=== PATIENT | male | born 1955 | race African-American/Black ===

== ENCOUNTER 2017-03-01 20:06 | Emergency (ER) | payer MEDICAID ==
[~2017-03-01] VITALS: Ht 180.3 cm; Wt 124.7 kg
[~2017-03-01 20:06] MED LIST: AUGMENTIN 875875 MG PO; BLOOD PRESSURE MED; FLEXERIL PO; FLONASE 0.05%50 MCG NASAL; GLUCOPHAGE XR500 MG PO; HYDROCHLOROTH12.5 M1 PO; LASIX 40 MG TAB40 M2; MOBIC15 MG PO; MOBIC7.5 MG PO; NORVASC2.5 MG PO; PERCOCET 5-3251 EACH PO; PERCOCET 7.5-31 EACH PO; PERCOCET PO; PREDNISONE 1 MG1 M1 PO; PREDNISONE50 MG PO; PROAIR HFA8.5 GM INH; PROMETHAZINE D480 ML PO; VENTOLIN HFA 1818 GM INH; XANAX 1 MG TABLE1 MG PO; ZESTRIL40 MG; ZPAK PO
[2017-03-01 21:24] LABS: ABSOLUTE BASOPHILS 0.1 thou/uL (0.0-0.2); ABSOLUTE EOSINOPHILS 0.1 thou/uL (0.0-0.7); ABSOLUTE LYMPHOCYTES 1.5 thou/uL (0.8-5.3); ABSOLUTE MONOCYTES 0.6 thou/uL (0.0-1.2); ABSOLUTE NEUTROPHILS 5.4 thou/uL (1.6-8.1); BASOPHILS 1.1 %; EOSINOPHILS 0.7 %; HEMATOCRIT 35.7 % (42.0-52.0); HEMOGLOBIN 12.3 gm/dL (14.0-18.0); LYMPHOCYTES 19.9 %; MCH 28.2 pg (26.0-34.0); MCHC 34.4 g/dL (28.0-37.0); MCV 81.9 fL (80.0-100.0); MONOCYTES 8.3 %; MPV 8.9 fl. (7.2-11.1); NUCLEATED RBCS 0 /100WBC; PLATELET COUNT* 271 thou/uL (150-400); RBC 4.36 mil/uL (4.50-6.00); RDW-CV 14.8 % (10.5-14.5); WBC 7.7 thou/uL (4.0-11.0)
[2017-03-01 21:33] LABS: ANION GAP 7 mmol/L (7-16); BUN 24 mg/dL (7-18); CALCIUM 9.1 mg/dL (8.5-10.1); CHLORIDE 104 mmol/L (98-107); CO2 27 mmol/L (21-32); CREATININE 1.5 mg/dL (0.6-1.3); GLUCOSE 121 mg/dL (70-99); POTASSIUM 4.9 mmol/L (3.5-5.1); SODIUM 138 mmol/L (136-145)
[2017-03-01 21:36] LABS: URINE BILIRUBIN NEGATIVE (Negative); URINE BLOOD NEGATIVE (Negative); URINE CLARITY CLEAR; URINE COLOR YELLOW; URINE GLUCOSE-RANDOM NEGATIVE (Negative); URINE KETONES NEGATIVE (Negative); URINE LEUKOCYTES-REFLEX NEGATIVE (Negative); URINE NITRITE-REFLEX NEGATIVE (Negative); URINE PROTEIN NEGATIVE (Negative); URINE UROBILINOGEN 0.2 E.U./dl (0.2-1.0)
[2017-03-01 21:46] LABS: ALBUMIN 3.6 g/dL (3.4-5.0); ALKALINE PHOSPHATASE 125 U/L (46-116); LIPASE 226 U/L (73-393); SGOT 56 U/L (15-37); SGPT 41 U/L (30-65); TOTAL BILIRUBIN 0.4 mg/dL (<0.1-1.0); TOTAL PROTEIN 7.3 g/dL (6.4-8.2); TROPONIN-I LEVEL <0.06 ng/mL (<0.06)
[2017-03-01 21:58] LABS: INFLUENZA A ANTIGEN None Detected (None Detect); INFLUENZA B ANTIGEN None Detected (None Detect)
[2017-03-01] MEDS ORDERED: LEVAQUIN 500 M500 MG PO (22:47)
[2017-03-01] MEDS ORDERED: PERCOCET 5-3251 EACH PO (22:47)
[2017-03-01] MEDS ORDERED: PROAIR HFA8.5 GM INH (22:47)
[2017-03-01 23:23] VITALS: BP 132/80
--- NOTE | 2017-03-02 10:31 | EKG ---
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: : 1955 Requested By: Zayra Ruelas Order Number: [id number] MD: Virgilio Gonzalez Measurements Intervals [place] Rate: 100 P: 52 CO: 158 QRS: 29 QRSD: 89 T: 47 QT: 328 QTc: 423 Interpretive Statements Sinus tachycardia early repolarization Probable left atrial enlargement Compared to ECG 08/08/2015 03:19:17 Sinus rhythm no longer present Electronically Signed On 03-02-2017 10:31:18 [employer] by Virgilio Gonzalez [email or web address] <ELECTRONICALLY SIGNED> By: Virgilio Gonzalez MD, [facility] 03/02/17 1031 50 50 Virgilio Gonzalez MD, FACC /EPI
== END 2017-03-01 23:30 | disposition home or self-care (01) ==
LOC: M.ERS 20:06
PROVIDERS: Nurse Practitioner Family
DX: J18.9 Pneumonia, unspecified organism (principal); M10.9 Gout, unspecified; R11.2 Nausea with vomiting, unspecified; R19.7 Diarrhea, unspecified; E11.9 Type 2 diabetes mellitus without complications; I10 Essential (primary) hypertension; K21.9 Gastro-esophageal reflux disease without esophagitis; Z87.891 Personal history of nicotine dependence

== ENCOUNTER 2017-10-29 17:48 | Emergency (ER) | payer MEDICAID ==
[~2017-10-29] VITALS: Ht 180.3 cm; Wt 128.8 kg
[~2017-10-29 17:48] MED LIST changes: +LEVAQUIN 500 M500 MG PO
[2017-10-29] MEDS ORDERED: ULTRAM 50MG TAB50 MG PO (18:59)
[2017-10-29] MEDS ORDERED: SINGULAIR 10 MG10 MG PO (19:14)
[2017-10-29] MEDS ORDERED: NORCO 5-325 TA1 EAC1 PO (19:17)
[2017-10-29 19:27] VITALS: BP 142/82
== END 2017-10-29 19:29 | disposition home or self-care (01) ==
LOC: M.ERS 17:48
DX: M25.511 Pain in right shoulder (principal); E11.9 Type 2 diabetes mellitus without complications; I10 Essential (primary) hypertension; K21.9 Gastro-esophageal reflux disease without esophagitis; Z85.118 Personal history of other malignant neoplasm of bronchus and lung; Z87.891 Personal history of nicotine dependence

== ENCOUNTER 2019-02-09 12:38 | Emergency (ER) | payer MEDICAID ==
[~2019-02-09] VITALS: Ht 180.3 cm; Wt 138.8 kg
[~2019-02-09 12:38] MED LIST changes: +NORCO 5-325 TA1 EAC1 PO; +SINGULAIR 10 MG10 MG PO; +ULTRAM 50MG TAB50 MG PO
[2019-02-09] MEDS ORDERED: LANTUS SUBQ (12:48)
[2019-02-09 13:31] LABS: URINE BILIRUBIN NEGATIVE (Negative); URINE BLOOD NEGATIVE (Negative); URINE CLARITY CLEAR; URINE COLOR YELLOW; URINE GLUCOSE-RANDOM NEGATIVE (Negative); URINE KETONES NEGATIVE (Negative); URINE LEUKOCYTES-REFLEX NEGATIVE (Negative); URINE NITRITE-REFLEX NEGATIVE (Negative); URINE PROTEIN NEGATIVE (Negative); URINE SPECIFIC GRAVITY 1.015 (1.005-1.030); URINE UROBILINOGEN 0.2 E.U./dl (0.2-1.0)
[2019-02-09 13:47] LABS: ABSOLUTE BASOPHILS 0.1 thou/uL (0.0-0.2); ABSOLUTE LYMPHOCYTES 1.5 thou/uL (0.8-5.3); ABSOLUTE MONOCYTES 0.4 thou/uL (0.0-1.2); ABSOLUTE NEUTROPHILS 5.6 thou/uL (1.6-8.1); EOSINOPHILS 0.4 %; HEMATOCRIT 40.7 % (42.0-52.0); LYMPHOCYTES 19.5 %; MCH 28.2 pg (26.0-34.0); MCHC 34.4 g/dL (28.0-37.0); MCV 81.9 fL (80.0-100.0); MONOCYTES 5.7 %; MPV 8.8 fl. (7.2-11.1); NUCLEATED RBCS 0 /100WBC; PLATELET COUNT* 288 thou/uL (150-400); POLYS 73.4 %; RBC 4.97 mil/uL (4.50-6.00); RDW-CV 13.7 % (10.5-14.5); WBC 7.6 thou/uL (4.0-11.0)
[2019-02-09 14:02] LABS: CALCIUM 9.3 mg/dL (8.5-10.1); CREATININE 1.4 mg/dL (0.6-1.3); POTASSIUM 3.9 mmol/L (3.5-5.1)
[2019-02-09 14:06] LABS: ALBUMIN 4.1 g/dL (3.4-5.0); TOTAL BILIRUBIN 0.4 mg/dL (<0.1-1.0); TOTAL PROTEIN 8.3 g/dL (6.4-8.2)
[2019-02-09] MEDS ORDERED: ONDANSETRON ODT4 MG PO (14:17)
[2019-02-09] MEDS ORDERED: XANAX 0.5 MG0.5 MG PO (14:17)
[2019-02-09 14:32] VITALS: BP 159/83
== END 2019-02-09 14:33 | disposition home or self-care (01) ==
LOC: M.ERS 12:38
PROVIDERS: Physician Assistant
DX: R11.2 Nausea with vomiting, unspecified (principal); F41.9 Anxiety disorder, unspecified; E11.9 Type 2 diabetes mellitus without complications; I10 Essential (primary) hypertension; K21.9 Gastro-esophageal reflux disease without esophagitis; Z85.118 Personal history of other malignant neoplasm of bronchus and lung; Z87.891 Personal history of nicotine dependence; Z79.4 Long term (current) use of insulin

== ENCOUNTER 2019-07-06 22:36 | Emergency (ER) | payer MEDICAID ==
[~2019-07-06] VITALS: Ht 180.3 cm; Wt 138.3 kg
[~2019-07-06 22:36] MED LIST changes: +LANTUS SUBQ; +ONDANSETRON ODT4 MG PO; +XANAX 0.5 MG0.5 MG PO
[2019-07-06] MEDS ORDERED: HYDROCORTISONE30 G9 RECTAL (23:02)
[2019-07-06] MEDS ORDERED: NORCO 5-325 TA1 EAC1 PO (23:02)
[2019-07-06 23:28] VITALS: BP 181/128
== END 2019-07-06 23:29 | disposition home or self-care (01) ==
LOC: M.ERS 22:36
DX: K64.4 Residual hemorrhoidal skin tags (principal); I10 Essential (primary) hypertension; E11.9 Type 2 diabetes mellitus without complications; K21.9 Gastro-esophageal reflux disease without esophagitis; Z85.118 Personal history of other malignant neoplasm of bronchus and lung; Z87.891 Personal history of nicotine dependence

== ENCOUNTER 2019-08-24 19:41 | Emergency (ER) | payer MEDICAID ==
[~2019-08-24] VITALS: Ht 180.3 cm; Wt 132.9 kg
[~2019-08-24 19:41] MED LIST changes: +HYDROCORTISONE30 G9 RECTAL
[2019-08-24 20:18] LABS: ABSOLUTE LYMPHOCYTES 1.6 thou/uL (0.8-5.3); ABSOLUTE MONOCYTES 0.6 thou/uL (0.0-1.2); BASOPHILS 0.5 %; EOSINOPHILS 0.2 %; HEMATOCRIT 37.1 % (42.0-52.0); LYMPHOCYTES 25.8 %; MCH 28.6 pg (26.0-34.0); MCHC 35.1 g/dL (28.0-37.0); MCV 81.4 fL (80.0-100.0); MONOCYTES 10.2 %; MPV 8.1 fl. (7.2-11.1); NUCLEATED RBCS 0 /100WBC; PLATELET COUNT* 234 thou/uL (150-400); POLYS 63.3 %; RBC 4.56 mil/uL (4.50-6.00); RDW-CV 14.5 % (10.5-14.5); WBC 6.4 thou/uL (4.0-11.0)
[2019-08-24 20:28] LABS: CALCIUM 8.5 mg/dL (8.5-10.1); CREATININE 1.6 mg/dL (0.6-1.3); POTASSIUM 3.7 mmol/L (3.5-5.1)
[2019-08-24 20:33] LABS: ALBUMIN 3.4 g/dL (3.4-5.0); TOTAL BILIRUBIN 0.4 mg/dL (<0.1-1.0); TOTAL PROTEIN 7.7 g/dL (6.4-8.2)
[2019-08-24] MEDS ORDERED: MECLIZINE HCL25 M1 PO (21:42)
[2019-08-24 22:01] VITALS: BP 140/84
--- NOTE | 2019-08-25 12:58 | EKG ---
[place] [address] ELECTROCARDIOGRAM REPORT Name: TITO LOCKHART Room: [facility]#: [id number] Admission: 08/24/19 Attend Phys: Discharge: 08/24/19 Date of : 59 Date of Service: 08/24/192001 Report #: [id number] THIS REPORT FOR: //name// [facility] ED Test Date: 2019-08-24 Test Time: 20:02:28 Pat Name: TITO LOCKHART Department: Room: Gender: Cutter First: : 1955 Requested By: David Burt Order Number: [id number] MD: Aureliano Quinteros Measurements Intervals [place] Rate: 100 P: 57 [place]: 155 QRS: 12 QRSD: 91 T: 27 QT: 324 QTc: 418 Interpretive Statements Sinus tachycardia Probable left atrial enlargement Baseline wander in lead(s) II,III,aVF Compared to ECG 03/01/2017 20:51:23 Early repolarization no longer present Electronically Signed On 08-25-2019 12:58:12 CDT by Aureliano Quinteros [email or web address] <ELECTRONICALLY SIGNED> By: Aureliano Quinteros MD, FACC 08/25/19 1258 01 01 Aureliano Quinteros MD, FAC /EPI
== END 2019-08-24 22:03 | disposition home or self-care (01) ==
LOC: M.ERS 19:41
PROVIDERS: Emergency Medicine Emergency Medical Services
DX: R42 Dizziness and giddiness (principal); E11.9 Type 2 diabetes mellitus without complications; I10 Essential (primary) hypertension; K21.9 Gastro-esophageal reflux disease without esophagitis; Z85.118 Personal history of other malignant neoplasm of bronchus and lung; Z87.891 Personal history of nicotine dependence

== ENCOUNTER 2019-09-29 13:50 | Emergency (ER) | payer MEDICAID ==
[~2019-09-29] VITALS: Ht 182.9 cm; Wt 131.5 kg
[~2019-09-29 13:50] MED LIST changes: +MECLIZINE HCL25 M1 PO
[2019-09-29] MEDS ORDERED: IBUPROFEN 800800 M1 PO (14:19)
[2019-09-29] MEDS ORDERED: NORCO 5-325 TA1 EAC2 PO (14:19)
[2019-09-29] MEDS ORDERED: FLEXERIL PO (14:19)
[2019-09-29 14:43] VITALS: BP 146/92
== END 2019-09-29 14:43 | disposition home or self-care (01) ==
LOC: M.ERS 13:50
DX: S39.012A Strain of muscle, fascia and tendon of lower back, initial encounter (principal); E11.9 Type 2 diabetes mellitus without complications; I10 Essential (primary) hypertension; K21.9 Gastro-esophageal reflux disease without esophagitis; Z85.118 Personal history of other malignant neoplasm of bronchus and lung; Z87.891 Personal history of nicotine dependence; X50.9XXA Other and unspecified overexertion or strenuous movements or postures, initial encounter; Y93.89 Activity, other specified; Y92.89 Other specified places as the place of occurrence of the external cause; Y99.8 Other external cause status

== ENCOUNTER 2019-10-22 17:16 | Emergency (ER) | payer MEDICAID ==
[~2019-10-22] VITALS: Ht 185.4 cm; Wt 136.1 kg
[~2019-10-22 17:16] MED LIST changes: +IBUPROFEN 800800 M1 PO; +NORCO 5-325 TA1 EAC2 PO
[2019-10-22 18:56] LABS: ABSOLUTE LYMPHOCYTES 1.8 thou/uL (0.8-5.3); ABSOLUTE MONOCYTES 0.4 thou/uL (0.0-1.2); BASOPHILS 0.7 %; EOSINOPHILS 0.2 %; HEMATOCRIT 40.3 % (42.0-52.0); HEMOGLOBIN 14.2 gm/dL (14.0-18.0); LYMPHOCYTES 42.5 %; MCH 28.6 pg (26.0-34.0); MCHC 35.3 g/dL (28.0-37.0); MCV 81.1 fL (80.0-100.0); MPV 8.5 fl. (7.2-11.1); NUCLEATED RBCS 0 /100WBC; PLATELET COUNT* 207 thou/uL (150-400); POLYS 46.6 %; RBC 4.97 mil/uL (4.50-6.00); RDW-CV 14.3 % (10.5-14.5); WBC 4.4 thou/uL (4.0-11.0)
[2019-10-22 19:06] LABS: CALCIUM 7.7 mg/dL (8.5-10.1); CREATININE 1.8 mg/dL (0.6-1.3); POTASSIUM 3.6 mmol/L (3.5-5.1)
[2019-10-22 19:10] LABS: ALBUMIN 3.6 g/dL (3.4-5.0); TOTAL BILIRUBIN 0.2 mg/dL (<0.1-1.0)
[2019-10-22] MEDS ORDERED: ZPAK PO (19:50)
[2019-10-22 20:45] VITALS: BP 155/100
--- NOTE | 2019-10-23 14:19 | EKG ---
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 : 1955 Requested By: Galindo Baeza Order Number: [id number] MD: Omi Olguin Measurements Intervals [place] Rate: 99 P: 45 [place]: 147 QRS: 16 QRSD: 97 T: 48 QT: 347 QTc: 446 Interpretive Statements Sinus rhythm Probable left atrial enlargement Compared to ECG 08/24/2019 20:02:28 Sinus tachycardia no longer present Electronically Signed On 10-23-2019 14:19:02 CDT by Omi Olguin [email or web address] <ELECTRONICALLY SIGNED> By: Darwin Olguin MD, [facility] 10/23/19 1419 1845 1845 Darwin Olguin MD, [facility] /EPI
== END 2019-10-22 20:45 | disposition home or self-care (01) ==
LOC: M.ERS 17:16
PROVIDERS: Nurse Practitioner Psychiatric/Mental Health
DX: U07.1 COVID-19 (principal); J18.1 Lobar pneumonia, unspecified organism; R19.7 Diarrhea, unspecified; E11.9 Type 2 diabetes mellitus without complications; I10 Essential (primary) hypertension; K21.9 Gastro-esophageal reflux disease without esophagitis; Z87.891 Personal history of nicotine dependence; Z79.4 Long term (current) use of insulin

== ENCOUNTER 2019-11-19 14:44 | Emergency (ER) | payer MEDICAID ==
[~2019-11-19] VITALS: Ht 180.3 cm; Wt 117.9 kg
[2019-11-19] MEDS ORDERED: NAPROSYN500 MG PO (16:19)
[2019-11-19] MEDS ORDERED: NORCO 5-325 TA1 EAC2 PO (16:19)
[2019-11-19 16:40] VITALS: BP 130/88
== END 2019-11-19 16:43 | disposition home or self-care (01) ==
LOC: M.ERS 14:44
DX: S20.211A Contusion of right front wall of thorax, initial encounter (principal); M25.511 Pain in right shoulder; E11.9 Type 2 diabetes mellitus without complications; I10 Essential (primary) hypertension; K21.9 Gastro-esophageal reflux disease without esophagitis; Z85.118 Personal history of other malignant neoplasm of bronchus and lung; Z79.899 Other long term (current) drug therapy; Z79.2 Long term (current) use of antibiotics; Z79.4 Long term (current) use of insulin; Z87.891 Personal history of nicotine dependence; V89.2XXA Person injured in unspecified motor-vehicle accident, traffic, initial encounter; Y93.I9 Activity, other involving external motion; Y92.488 Other paved roadways as the place of occurrence of the external cause; Y99.8 Other external cause status

== ENCOUNTER 2019-12-31 11:03 | Emergency (ER) | payer MEDICAID ==
[~2019-12-31] VITALS: Ht 180.3 cm; Wt 140.6 kg
[~2019-12-31 11:03] MED LIST changes: +NAPROSYN500 MG PO
[2019-12-31] MEDS ORDERED: NORCO 5-325 TA1 EAC2 PO (12:51)
[2019-12-31 13:07] VITALS: BP 129/70
== END 2019-12-31 13:09 | disposition home or self-care (01) ==
LOC: M.ERS 11:03
DX: S92.415A Nondisplaced fracture of proximal phalanx of left great toe, initial encounter for closed fracture (principal); I10 Essential (primary) hypertension; E11.9 Type 2 diabetes mellitus without complications; Z79.899 Other long term (current) drug therapy; Z79.4 Long term (current) use of insulin; Z87.891 Personal history of nicotine dependence; W01.0XXA Fall on same level from slipping, tripping and stumbling without subsequent striking against object, initial encounter; Y93.89 Activity, other specified; Y92.89 Other specified places as the place of occurrence of the external cause; Y99.8 Other external cause status

== ENCOUNTER 2020-08-10 12:58 | Emergency (ER) | payer MEDICAID ==
[~2020-08-10] VITALS: Ht 180.3 cm; Wt 141.5 kg
[2020-08-10 15:56] LABS: ABSOLUTE EOSINOPHILS 0.1 thou/uL (0.0-0.7); ABSOLUTE LYMPHOCYTES 2.3 thou/uL (0.8-5.3); ABSOLUTE MONOCYTES 0.6 thou/uL (0.0-1.2); ABSOLUTE NEUTROPHILS 3.3 thou/uL (1.6-8.1); BASOPHILS 0.7 %; EOSINOPHILS 1.2 %; HEMOGLOBIN 13.2 gm/dL (14.0-18.0); LYMPHOCYTES 36.3 %; MCH 30.2 pg (26.0-34.0); MCHC 35.6 g/dL (28.0-37.0); MCV 84.8 fL (80.0-100.0); MONOCYTES 9.5 %; NUCLEATED RBCS 0 /100WBC; PLATELET COUNT* 271 thou/uL (150-400); POLYS 52.3 %; RBC 4.37 mil/uL (4.50-6.00); RDW-CV 14.2 % (10.5-14.5); WBC 6.3 thou/uL (4.0-11.0)
[2020-08-10 16:10] LABS: CALCIUM 9.2 mg/dL (8.5-10.1); CREATININE 1.3 mg/dL (0.6-1.3); POTASSIUM 5.9 mmol/L (3.5-5.1)
[2020-08-10 16:13] LABS: URINE BILIRUBIN NEGATIVE (Negative); URINE BLOOD NEGATIVE (Negative); URINE CLARITY CLEAR; URINE COLOR YELLOW; URINE GLUCOSE-RANDOM NEGATIVE (Negative); URINE KETONES NEGATIVE (Negative); URINE LEUKOCYTES-REFLEX NEGATIVE (Negative); URINE NITRITE-REFLEX NEGATIVE (Negative); URINE PROTEIN NEGATIVE (Negative); URINE SPECIFIC GRAVITY 1.015 (1.005-1.030); URINE UROBILINOGEN 0.2 E.U./dl (0.2-1.0)
[2020-08-10 16:14] LABS: ALBUMIN 3.6 g/dL (3.4-5.0); TOTAL BILIRUBIN 0.5 mg/dL (<0.1-1.0); TOTAL PROTEIN 8.3 g/dL (6.4-8.2)
[2020-08-10] MEDS ORDERED: TORADOL 10 MG T10 MG PO (18:56)
[2020-08-10] MEDS ORDERED: CITRATE OF MAG296 M1 PO (18:56)
[2020-08-10] MEDS ORDERED: KRISTALOSE20 GM PO (18:56)
[2020-08-10 19:05] VITALS: BP 121/54
--- NOTE | 2020-08-11 11:39 | EKG ---
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: [facility] : 1955 Requested By: Gagan Clark Order Number: [id number] MD: Virgilio Gonzalez Measurements Intervals [place] Rate: 83 P: 54 MD: 162 QRS: 17 QRSD: 96 T: 37 QT: 372 QTc: 437 Interpretive Statements Sinus rhythm Baseline wander in lead(s) I,III,aVL Compared to ECG 10/22/2019 18:45:15 No significant changes Electronically Signed On 08-11-2020 11:39:28 CDT by Virgilio Gonzalez [email or web address] <ELECTRONICALLY SIGNED> By: Virgilio Gonzalez MD, FAC 08/11/20 1139 1622 1622 Virgilio Gonzalez MD, [facility] /EPI
== END 2020-08-10 19:06 | disposition home or self-care (01) ==
LOC: M.ERS 12:58
PROVIDERS: Physician Assistant
DX: K59.00 Constipation, unspecified (principal); E11.9 Type 2 diabetes mellitus without complications; I10 Essential (primary) hypertension; K21.9 Gastro-esophageal reflux disease without esophagitis; Z85.118 Personal history of other malignant neoplasm of bronchus and lung; Z87.891 Personal history of nicotine dependence

== ENCOUNTER 2020-08-18 20:22 | Emergency (ER) | payer MEDICAID ==
[~2020-08-18] VITALS: Ht 180.3 cm; Wt 140.6 kg
[~2020-08-18 20:22] MED LIST changes: +CITRATE OF MAG296 M1 PO; +KRISTALOSE20 GM PO; +TORADOL 10 MG T10 MG PO
[2020-08-18 21:28] VITALS: BP 139/84
[2020-08-18] MEDS ORDERED: PROMETHAZINE-C473 ML PO (22:21)
== END 2020-08-18 22:35 | disposition home or self-care (01) ==
LOC: M.ERS 20:22
DX: J20.9 Acute bronchitis, unspecified (principal); Z20.822 Contact with and (suspected) exposure to COVID-19; I10 Essential (primary) hypertension; E11.9 Type 2 diabetes mellitus without complications; Z79.4 Long term (current) use of insulin; Z79.899 Other long term (current) drug therapy; Z87.891 Personal history of nicotine dependence

== ENCOUNTER 2020-09-20 12:53 | Emergency (ER) | payer MEDICAID ==
[~2020-09-20] VITALS: Ht 180.3 cm; Wt 99.8 kg
[~2020-09-20 12:53] MED LIST changes: +PROMETHAZINE-C473 ML PO
[2020-09-20 14:50] VITALS: BP 153/96
[2020-09-20] MEDS ORDERED: ZOFRAN ODT4 MG DISSOLVE (14:53)
== END 2020-09-20 14:50 | disposition home or self-care (01) ==
LOC: M.ERS 12:53
DX: B34.9 Viral infection, unspecified (principal); Z20.822 Contact with and (suspected) exposure to COVID-19; E11.9 Type 2 diabetes mellitus without complications; I10 Essential (primary) hypertension; K21.9 Gastro-esophageal reflux disease without esophagitis; Z79.899 Other long term (current) drug therapy; Z85.118 Personal history of other malignant neoplasm of bronchus and lung

== ENCOUNTER 2020-12-27 15:27 | Emergency (ER) | payer MEDICAID ==
[~2020-12-27] VITALS: Ht 180.3 cm; Wt 142.4 kg
[~2020-12-27 15:27] MED LIST changes: +ZOFRAN ODT4 MG DISSOLVE
[2020-12-27] MEDS ORDERED: NORCO5 PO ×2 (17:27→17:44)
[2020-12-27] MEDS ORDERED: FLEXERIL PO (17:27)
[2020-12-27 18:03] VITALS: BP 169/90
== END 2020-12-27 18:04 | disposition home or self-care (01) ==
LOC: M.ERS 15:27
DX: M79.604 Pain in right leg (principal); E11.9 Type 2 diabetes mellitus without complications; I10 Essential (primary) hypertension; K21.9 Gastro-esophageal reflux disease without esophagitis; Z98.890 Other specified postprocedural states; Z90.49 Acquired absence of other specified parts of digestive tract; Z79.899 Other long term (current) drug therapy; Z87.891 Personal history of nicotine dependence